=== PATIENT | male | born 1965 | race Caucasian/White ===

== ENCOUNTER → 2017-05-21 | Outpatient (CLI) | payer OTHER ==
[~2017-05-21] MED LIST: ASPIR-TRIN325 MG PO; ASPIRIN325 PO; ATENOLOL 100MG100 MG PO; ATENOLOL 25 MG25 M1; ATENOLOL 50MG T50 M1 PO; BENAZEPRIL HCL10 MG PO; CARDIZEM CD240 MG PO; LEVOTHYROXIN0.125 M1; LOTREL 2.5-101 EACH PO; LOTREL 5-10 MG1 EACH; OMEPRAZOLE 20 M20 M1 PO; PRADAXA150 MG PO; PROPAFENONE 22225 M1 PO; RYTHMOL SR325 MG PO; SYNTHROID125 MCG PO; SYNTHROID150 MCG PO
== END ==
LOC: M.LAB 16:31
DX: R00.2 Palpitations (principal)

== ENCOUNTER 2017-05-31 11:31 | Inpatient (IN) | payer OTHER ==
[~2017-05-31] VITALS: Ht 175.3 cm; Wt 124.7 kg
[~2017-05-31 11:31] MED LIST changes: -ASPIR-TRIN325 MG PO; -ASPIRIN325 PO; -ATENOLOL 100MG100 MG PO; -BENAZEPRIL HCL10 MG PO; -CARDIZEM CD240 MG PO; -PRADAXA150 MG PO; -PROPAFENONE 22225 M1 PO; -RYTHMOL SR325 MG PO; -SYNTHROID150 MCG PO
[2017-05-31 11:37] VITALS: BP 144/75
[2017-05-31] MEDS ORDERED: SYNTHROID150 MCG PO (11:41)
[2017-05-31] MEDS ORDERED: CARDIZEM CD240 MG PO (11:41)
[2017-05-31 12:02] LABS: ABSOLUTE EOSINOPHILS 0.2 thou/uL (0.0-0.7); ABSOLUTE LYMPHOCYTES 1.3 thou/uL (0.8-5.3); ABSOLUTE MONOCYTES 0.6 thou/uL (0.0-1.2); ABSOLUTE NEUTROPHILS 3.8 thou/uL (1.6-8.1); BASOPHILS 0.4 %; EOSINOPHILS 2.8 %; HEMATOCRIT 44.9 % (42.0-52.0); HEMOGLOBIN 15.2 gm/dL (14.0-18.0); LYMPHOCYTES 21.4 %; MCH 31.7 pg (26.0-34.0); MCHC 33.8 g/dL (28.0-37.0); MCV 93.9 fL (80.0-100.0); MONOCYTES 10.7 %; MPV 7.4 fl. (7.2-11.1); NUCLEATED RBCS 0 /100WBC; PLATELET COUNT* 219 thou/uL (150-400); POLYS 64.7 %; RBC 4.78 mil/uL (4.50-6.00); RDW-CV 13.4 % (10.5-14.5); WBC 5.9 thou/uL (4.0-11.0)
[2017-05-31 12:12] LABS: ANION GAP 8 mmol/L (7-16); BUN 15 mg/dL (7-18); CALCIUM 8.8 mg/dL (8.5-10.1); CHLORIDE 104 mmol/L (98-107); CO2 29 mmol/L (21-32); GLUCOSE 117 mg/dL (70-99); SODIUM 141 mmol/L (136-145)
[2017-05-31 12:17] LABS: APTT 27.8 Seconds (25.0-31.3); PROTIME 10.1 Seconds (9.20-11.50)
[2017-05-31 12:31] LABS: ALKALINE PHOSPHATASE 98 U/L (46-116); LIPASE 166 U/L (73-393); NT-PRO BRAIN NAT PEPTIDE 46 pg/mL (<300); SGOT 51 U/L (15-37); SGPT 92 U/L (30-65); TOTAL BILIRUBIN 0.5 mg/dL (<0.1-1.0); TOTAL PROTEIN 7.9 g/dL (6.4-8.2); TROPONIN-I LEVEL <0.06 ng/mL (<0.06)
[2017-05-31 13:54] VITALS: BP 140/74
[2017-05-31 14:15] VITALS: BP 148/74
--- NOTE | 2017-05-31 20:11 | NUR ---
PT ARRIVED TO ROOM 224 AT APPROX 1400 FROM ER. PT ORIENTED TO ROOM AND STAFF, ADMISSION HX DONE, REVIEWED PTS HOME MEDS. PT STATES HE STARTED TAKING PO CARDIZEM YESTERDAY AND THEN STARTED HAVING NAUSEA AND A MONSON. HE STATES HE HAS BEEN WEARING A HALTER MONIOTOR FOR ABOUT A WEEK AND WAS CALLED YESTERDAY STATING THAT HE HAD EPISODES OF AFIB. PT HAD SEVERAL SHORT RUNS OF A FIB AFTER BEING PLACED ON THE MONITOR BUT SR THE MAJORITY OF THE TIME. DR HELMS NOTIFIED, ORDERS FOR MEDS RECIEVED. PTS VSS, UP AD NICOLASA IN ROOM. REPORT GIVEN TO OSWALDO HERRERA.
[2017-06-01] VITALS (9 sets, daily range): BP systolic 120–157; BP diastolic 68–85
--- NOTE | 2017-06-01 10:52 | NUR ---
ASSUMED PT CARE AT 0730, FULL ASSESMENT DONE CHARTED. PT A/O X4, DENIES PAIN, BUT STATES HE HAS PRESSURE IN THE FRONT OF HIS HEAD WHEN HE LOOKS UP OR DOWN. PT DENIES BEING DIZZY. ORTHOSTATIC BP CHECKED AND WAS NEGAIVE. PT IS WANTING TO GO HOME. PT EDUCATED ON TESTS SCHEDULED FOR TODAY. PT UP AD NICOLASA IN ROOM. WANTS TO TAKE A SHOWER. FALL PRECATUIONS IN PLACE. CALL LIGHT IN REACH. WILL CONTINUE [facility] PLAN OF CARE.
--- NOTE | 2017-06-01 12:32 | EKG ---
[place] [address] ELECTROCARDIOGRAM REPORT Name: LORI MIN Room: [address] ADM IN .R.#: [id number] Admission: 05/31/17 Attend Phys: Chris Tee, Discharge: Date of : 63 Report #: [id number] THIS REPORT FOR: //name// [facility] ED Test Date: 2017-05-31 Test Time: 11:37:35 Pat Name: LORI MIN Department: Room: [facility] Gender: M Assistant Signal Maintainer: Brian CEBALLOS : 1965 Requested By: Qasim Davis Order Number: [id number] MD: Dominic Caldera Measurements Intervals [place] Rate: 76 P: 44 SD: 185 QRS: 59 QRSD: 93 T: 25 QT: 377 QTc: 424 Interpretive Statements Sinus rhythm Baseline wander in lead(s) I,II,aVR Compared to ECG 01/28/2016 12:07:50 No significant changes Electronically Signed On 06-01-2017 12:32:36 PLASTICS SEASONER OPERATOR by Dominic Caldera [email or web address] <ELECTRONICALLY SIGNED> By: Dominic Caldera MD, FAC 06/01/17 1232 1137 1137 Dominic Caldera MD, [facility] /EPI
[2017-06-01] MEDS ORDERED: PROPAFENONE 22225 M1 PO (12:46)
[2017-06-01] MEDS ORDERED: ASPIRIN325 PO (12:47)
--- NOTE | 2017-06-04 08:50 | CON ---
[address] [address] CONSULTATION Name: LORI MIN Room: [address] IN M.R.#: [id number] Admission: 05/31/17 Attend Phys: Chris Tee, Discharge: 06/01/17 Date of : 63 Report #: [id number] THIS REPORT FOR: //name// CC: Chris Pierce DATE OF SERVICE: 06/01/2017 PRIMARY JOINERY MACHINIST: Arnold Jarvis MD. PCP: Nate Pierce MD CHIEF COMPLAINT: Dizziness and atrial fibrillation. HISTORY OF PRESENT ILLNESS: The patient is a 51-year-old man with known paroxysmal atrial fibrillation who had been wearing an event recorder having paroxysms of atrial fibrillation in the 140-160 beats per minute and associated with dizziness, lightheadedness and low blood pressure readings in the low 100s systolic range. He denied neuro symptoms, slurred speech, but did have a headache and mild dizziness. He denied extremity weakness. This morning, he is asymptomatic after receiving IV fluids and increasing his atrial fibrillation medication, in addition to the diltiazem, he had already been taking atenolol and Lotrel and the combination of those three drugs caused hypotension. Those medicines were discontinued with the exception of his atenolol this morning. His heart rate is in the mid 50s and his blood pressure has improved to the 130 systolic range and he had been started on propafenone overnight. He is in sinus rhythm currently. Based on his CHADS score, he is only on aspirin for anticoagulation. PAST MEDICAL HISTORY: 1. Hypertension 2. Paroxysmal atrial fibrillation. 3. Hypothyroidism. HOME MEDICATIONS: Include omeprazole, Cardizem 240 mg daily, Synthroid 150 mcg daily, amlodipine, benazepril 2.5/10 mg daily and atenolol 50 mg p.o. b.i.d. PAST SURGICAL HISTORY: Hodgkin's lymphoma, status post surgery and prior knee surgery. SOCIAL HISTORY: Nonsmoker and minimal drinking. REVIEW OF SYSTEMS: CONSTITUTIONAL: [place] [address] CONSULTATION Name: LORI MIN Room: [address]#: [id number] Admission: 05/31/17 Attend Phys: Chris Tee, Discharge: 06/01/17 Date of : 63 Report #: [id number] CARDIOVASCULAR: Positive palpitations. No chest pain. Denies orthopnea or PND. RESPIRATORY: Mild dyspnea with these episodes. Denies numbness, weakness or asthma. NEUROLOGIC: Denies slurred speech, numbness or visual changes. THROAT: Denies any dysphagia. HEMATOLOGIC: No anemia or bleeding disorders. PHYSICAL EXAMINATION: VITAL SIGNS: As noted above. GENERAL: This is a pleasant, mildly obese adult male who is alert, oriented, in no apparent distress. VITAL SIGNS: His blood pressure is 127/82 with a heart rate 60 and in sinus rhythm. HEENT: Eyes, EOMs are intact. There is no facial asymmetry. NECK: Supple. No jugular venous distention. Upstrokes are normal. There are no bruits. CARDIOVASCULAR: Regular. I cannot hear a murmur or S3. LUNGS: Clear to auscultation bilaterally. ABDOMEN: Soft, nontender and nondistended. EXTREMITIES: There is no peripheral edema. LABORATORY DATA: Electrocardiogram demonstrated paroxysms of atrial fibrillation with heart rates in the 150s. He is in a sinus rhythm. There are no acute ST-segment abnormalities. Sodium is 141, potassium 4.0, chloride 104, BUN is 15, creatinine is 1.0. ALT is ____, AST is 51. Troponin I is 0.06. NT-proBNP is 46. Hemoglobin is 15.2. Carotid Dopplers demonstrate no hemodynamically significant plaques. CT of the head demonstrates no acute intracranial process. ASSESSMENT: 1. Paroxysmal atrial fibrillation. He is quite symptomatic. I have increased his therapy to propafenone 225 mg p.o. t.i.d. along with Cardizem. I discontinued his other therapies. 2. Hypotension. This was likely secondary to other therapies, which have been discontinued. 3. Hypertension. We will monitor this closely as an outpatient. The patient does check his blood pressure frequently at home. 4. Headache. His CT scan of the brain was unremarkable and his symptoms have resolved with improvement of his blood pressure [place] [address] CONSULTATION Name: LORI MIN Room: [address]#: [id number] Admission: 05/31/17 Attend Phys: Chris Tee, Discharge: 06/01/17 Date of : 63 Report #: [id number] FOLLOWUP: He has followup scheduled with Dr. Jarvis and he still is wearing his 30-day event recorder. <ELECTRONICALLY SIGNED> By: Dominic Caldera MD, FACC 06/04/17 0850 1146 [id number] Caldera MD, FACC /nt
[2017-07-07] MEDS ORDERED: BENAZEPRIL HCL10 MG PO (14:56)
[2017-07-07] MEDS ORDERED: PRADAXA150 MG PO (14:56)
[2017-07-07] MEDS ORDERED: ATENOLOL 100MG100 MG PO (14:57)
[2017-07-18] MEDS ORDERED: CARDIZEM CD240 MG PO (06:44)
[2017-07-18] MEDS ORDERED: ASPIR-TRIN325 MG PO (06:46)
[2017-07-19] MEDS ORDERED: PRADAXA150 MG PO (09:24)
[2017-07-19] MEDS ORDERED: RYTHMOL SR325 MG PO (09:25)
== END 2017-06-01 15:09 | disposition home or self-care (01) | DRG 310 ==
LOC: M.ERS 11:31 → M.TBA-ER 12:39 → M.2W 13:49
PROVIDERS: Family Medicine; ADMIT Family Medicine
DX: I48.0 Paroxysmal atrial fibrillation (principal); I95.9 Hypotension, unspecified; I10 Essential (primary) hypertension; K21.9 Gastro-esophageal reflux disease without esophagitis; E03.9 Hypothyroidism, unspecified; Z88.5 Allergy status to narcotic agent; Z85.71 Personal history of Hodgkin lymphoma; Z79.899 Other long term (current) drug therapy; Z88.6 Allergy status to analgesic agent

== ENCOUNTER → 2017-07-08 | Outpatient (CLI) | payer OTHER ==
[2017-07-08] VITALS (13 sets, daily range): BP systolic 92–146; BP diastolic 54–97
[~2017-07-08] MED LIST changes: +ASPIR-TRIN325 MG PO; +ASPIRIN325 PO; +ATENOLOL 100MG100 MG PO; +BENAZEPRIL HCL10 MG PO; +CARDIZEM CD240 MG PO; +PRADAXA150 MG PO; +PROPAFENONE 22225 M1 PO; +RYTHMOL SR325 MG PO; +SYNTHROID150 MCG PO
--- NOTE | 2017-07-08 17:00 | TEE ---
[place] [address] TRANSESOPHAGEAL ECHOCARDIOGRAM Name: LORI MIN Room: [facility]#: [id number] Admission: 07/08/17 Attend Phys: Arnold Jarvis, Discharge: Date of : 63 Date of Service: 07/08/17 1700 Report #: [id number] THIS REPORT FOR: //name// APPROVED REPORT Study performed: 07/08/2017 10:07:25 EXAM: Transesophageal Echocardiogram Patient Location: Out-Patient Status: routine BSA: 2.35 HR: 65 bpm BP: 129/78 mmHg Rhythm: NSR Other Information Study Quality: Good Indications afib, pre-ablation Echo Enhancing Agent Indication: Rule out Shunt Agent(s) / Amount(s) Used: Agitated Saline 10 cc Procedure After obtaining informed consent, patient underwent transesophageal echo in the [employer]. Type of Sedation : Conscious Sedation Sedation was administered by Enedina Brown RN. Sedation start time: 1005 Case end Time: 1030 Sedation was achieved intravenously with: Versed (6) Fentanyl (150) Transesophageal probe was inserted and advanced into esophagus without difficulty by Arnold Jarvis MD, FACC. Echo enhancement indication: R/O Septal defect. Echo enhancement agent administered: Agitated Saline The JOAN was performed without complications. Throughout the procedure, the blood pressure, pulse oximetry, cardiac rhythm, and rate were monitored. The patient tolerated the procedure without adverse effects. Recovery from conscious sedation was uneventful and vital signs were stable. Left Ventricle [place] [id number] TRANSESOPHAGEAL ECHOCARDIOGRAM Name: LORI MIN Room: [facility]#: [id number] Admission: 07/08/17 Attend Phys: Arnold Jarvis, Discharge: Date of : 63 Date of Service: 07/08/17 1700 Report #: [id number] The left ventricle is normal size. There is normal LV segmental wall motion. There is normal left ventricular wall thickness. Left ventricular systolic function is normal. LVEF is 60-65%. Right Ventricle The right ventricle is normal size. The right ventricular systolic function is normal. Atria Left atrium is mildly dilated. No thrombus is visualized in the left atrium or appendage. Interatrial septum is intact without evidence of ASD or PFO. The right atrium size is normal. Aortic Valve The aortic valve appears physiologically bicuspid with only a small left coronary cusp. No aortic regurgitation is present. There is no aortic valvular stenosis. Mitral Valve The mitral valve is normal in structure. Trace mitral regurgitation. No evidence of mitral valve stenosis. Tricuspid Valve The tricuspid valve is normal in structure. Trace tricuspid regurgitation. Pulmonic Valve The pulmonary valve is normal in structure. There is no pulmonic valvular regurgitation. Great Vessels The aortic root is normal in size. Pericardium There is no pericardial effusion. <Conclusion> The left ventricle is normal size. There is normal left ventricular wall thickness. Left ventricular systolic function is normal. LVEF is 60-65%. Interatrial septum is intact without evidence of ASD or PFO. Left atrium is mildly dilated. No thrombus is visualized in the left [place] [address] TRANSESOPHAGEAL ECHOCARDIOGRAM Name: LORI MIN Room: [facility]#: [id number] Admission: 07/08/17 Attend Phys: Arnold Jarvis, Discharge: Date of : 63 Date of Service: 07/08/171699 Report #: [id number] The aortic valve appears physiologically bicuspid with only a small left coronary cusp. <ELECTRONICALLY SIGNED> By: Arnold Jarvis MD, FACC 07/08/171699 99 99 Arnold Jarvis MD, FACC /INF
== END ==
LOC: M.CL 09:05
DX: I51.7 Cardiomegaly (principal); Z88.8 Allergy status to other drugs, medicaments and biological substances; Z79.899 Other long term (current) drug therapy

== ENCOUNTER → 2018-06-25 | Outpatient (CLI) | payer OTHER ==
[2018-06-25 10:43] LABS: ABSOLUTE EOSINOPHILS 0.1 thou/uL (0.0-0.7); ABSOLUTE MONOCYTES 0.5 thou/uL (0.0-1.2); ABSOLUTE NEUTROPHILS 3.1 thou/uL (1.6-8.1); BASOPHILS 0.5 %; EOSINOPHILS 2.9 %; HEMATOCRIT 41.2 % (42.0-52.0); HEMOGLOBIN 13.9 gm/dL (14.0-18.0); LYMPHOCYTES 20.4 %; MCH 30.6 pg (26.0-34.0); MCHC 33.7 g/dL (28.0-37.0); MCV 90.7 fL (80.0-100.0); MONOCYTES 10.5 %; MPV 7.9 fl. (7.2-11.1); NUCLEATED RBCS 0 /100WBC; PLATELET COUNT* 219 thou/uL (150-400); POLYS 65.7 %; RBC 4.54 mil/uL (4.50-6.00); RDW-CV 13.8 % (10.5-14.5); WBC 4.8 thou/uL (4.0-11.0)
[2018-06-25 11:07] LABS: ALBUMIN 3.8 g/dL (3.4-5.0); ALKALINE PHOSPHATASE 78 U/L (46-116); ANION GAP 9 mmol/L (7-16); BUN 17 mg/dL (7-18); CALCIUM 8.8 mg/dL (8.5-10.1); CHLORIDE 106 mmol/L (98-107); CO2 26 mmol/L (21-32); GLUCOSE 109 mg/dL (70-99); POTASSIUM 4.3 mmol/L (3.5-5.1); SGOT 37 U/L (15-37); SGPT 50 U/L (30-65); SODIUM 141 mmol/L (136-145); TOTAL BILIRUBIN 0.4 mg/dL (<0.1-1.0); TOTAL PROTEIN 7.5 g/dL (6.4-8.2)
[2018-06-25 13:31] LABS: CHOLESTEROL 177 mg/dL (<200); HDL CHOLESTEROL 41 mg/dL (>40); LDL CHOLESTEROL 116 mg/dL (<100); SERUM ASSESSMENT Clear; TC:HDL 4.3 Ratio (Not establshd); TRIGLYCERIDE 100 mg/dL (<150); VLDL 20 mg/dL (<40)
== END ==
LOC: M.LAB 10:18
PROVIDERS: Family Medicine
DX: Z00.00 Encounter for general adult medical examination without abnormal findings (principal); I48.91 Unspecified atrial fibrillation; I10 Essential (primary) hypertension; K21.9 Gastro-esophageal reflux disease without esophagitis; E03.9 Hypothyroidism, unspecified

== ENCOUNTER → 2018-06-26 | Outpatient (CLI) | payer OTHER ==
[2018-06-26 23:07] LABS: GLYCOHEMOGLOBIN (HGB A1C) 5.6 % (4.8-5.6)
== END ==
LOC: M.LAB 15:09
PROVIDERS: Family Medicine
DX: R73.09 Other abnormal glucose (principal)